=== PATIENT | male | born 1960 | race Two or more races ===

== ENCOUNTER 2022-08-11 12:55 | Inpatient (IN) | payer MEDICAID, OTHER ==
[~2022-08-11] VITALS: Ht 167.6 cm; Wt 107.0 kg
[2022-08-11] VITALS (9 sets, daily range): BP systolic 136–166; BP diastolic 64–92
[2022-08-11] MEDS ORDERED: LOSA100T25 PO (13:15)
[2022-08-11] MEDS ORDERED: AMLO-489 PO (13:15)
[2022-08-11] MEDS ORDERED: POTA10TA51 PO (13:15)
[2022-08-11] MEDS ORDERED: ROSU10TA16 PO (13:15)
[2022-08-11 13:25] LABS: Basophils # (auto) 0 10 ^3/uL (0-0.2); Eosinophils # (auto) 0.3 10 ^3/uL (0-0.8); Lymphocytes # (auto) 4.3 10 ^3/uL (0.4-5.4); Lymphocytes % (auto) 43.8 % (10.0-50.0); Nucleated Red Blood Cells % 0.1 %; Red Cell Distribution Width 17.6 % (11.8-14.3)
[2022-08-11] MEDS ORDERED: DOPamine 1600MCG/ML D5W 250 ML IV ONE (13:30)
[2022-08-11 13:33] LABS: Basophils % (auto) 0.2 % (0.0-2.0); Eosinophils % (auto) 3.4 % (0.0-7.0); Hematocrit 40.2 % (41.0-53.0); Hemoglobin 13.4 g/dL (13.5-17.5); Mean Corpuscular Hemoglobin 24.9 pg (28.0-32.0); Mean Corpuscular Hgb Conc. 33.4 g/dL (32.0-36.0); Mean Corpuscular Volume 74.6 fL (80.0-100.0); Neutrophils # (auto) 4.1 10 ^3/uL (1.6-8.6); Neutrophils % (auto) 42.6 % (37.0-80.0); Red Blood Cells 5.39 10^6/uL (4.5-5.90); White Blood Cell 9.7 10^3/uL (4.4-10.8)
[2022-08-11 13:43] LABS: Albumin 3.7 g/dL (3.4-5.0); Calcium 8.8 mg/dL (8.5-10.1); Magnesium 2.4 mg/dL (1.6-2.6); Potassium 3.4 mmol/L (3.5-5.1)
[2022-08-11] MEDS ORDERED: GLUCAGON HYDROCHLORIDE (RDNA) 1 MG VIAL IV ONE (13:45)
[2022-08-11] MEDS ORDERED: CALCIUM GLUC 1,000mg/50ml-NS 50 ML IV ONE (13:45)
[2022-08-11 13:48] LABS: INR 0.96 (0.9-1.15); Partial Thromboplastin Time 26.5 sec (24.6-33.4)
[2022-08-11 13:49] LABS: BUN/Creatinine Ratio 16.9; Bilirubin, Total 0.4 mg/dL (0.2-1.0); Total Protein 7.2 g/dL (6.4-8.2)
[2022-08-11 14:13] LABS: Cholesterol 137 mg/dL (< 200); HDL Cholesterol 41 mg/dL (40-59); LDL Cholesterol 80 mg/dL (< 100); Triglycerides 179 mg/dL (< 150)
[2022-08-11] MEDS ORDERED: LIDOCAINE 2%HCL (LOCAL ANESTH.) INJ 20ML MDV ONE (15:36)
[2022-08-11] MEDS ORDERED: VANCOMYCIN HCL 1000 MG VL ONE (15:44)
[2022-08-11] MEDS ORDERED: VANCOMYCIN 1GM/250ML 250 ML IV ONE (15:45)
[2022-08-11] MEDS ORDERED: fentaNYL CITRATE 100 MCG/2 ML VL ONE (15:45)
[2022-08-11] MEDS ORDERED: MIDAZOLAM HCL 2MG/2ML 2ml VIAL (1mg/ml) ONE (15:45)
[2022-08-11] MEDS ORDERED: IODIXANOL 320MG/ML 100ML BTL IV ONE (16:00)
[2022-08-11] MEDS ORDERED: ALBUAER3 IN (16:08)
[2022-08-11] MEDS ORDERED: AMLO-496 PO (16:08)
[2022-08-11] MEDS ORDERED: ACETAMINOPHEN 500 MG TAB PO PRN (16:15)
[2022-08-11] MEDS ORDERED: MORPHINE SULFATE INJ 2 MG/ml SYRG IV PRN (16:15)
[2022-08-11] MEDS ORDERED: NITROGLYCERIN 0.4 MG SL TAB SL PRN (16:15)
[2022-08-11] MEDS ORDERED: hydrALAZINE HCL 20 MG/ML VL IV PRN (16:15)
[2022-08-11] MEDS ORDERED: SODIUM CHLORIDE 0.9% 1,000 ML IV SCH (17:15)
[2022-08-11] MEDS ORDERED: POTASSIUM EFFERVESENT TAB 25 MEQ PO ONE (18:00)
[2022-08-11] MEDS: HYDROcodone-ACET 10/325MG TAB PO PRN (20:42)
[2022-08-11] MEDS: ATORVASTATIN 20 MG TAB PO SCH (21:25)
[2022-08-12] VITALS (7 sets, daily range): BP systolic 123–154; BP diastolic 63–82
[2022-08-12 05:55] LABS: Potassium 3.2 mmol/L (3.5-5.1)
[2022-08-12 05:59] LABS: BUN/Creatinine Ratio 17.3; Calcium 8.3 mg/dL (8.5-10.1)
[2022-08-12] MEDS: HYDROcodone-ACET 10/325MG TAB PO PRN ×2 (06:39→14:07)
[2022-08-12] MEDS: amLODIPine BESYLATE 5 MG TAB PO SCH (08:23)
[2022-08-12] MEDS: LOSARTAN POTASSIUM 50 MG TAB PO SCH (08:24)
[2022-08-12] MEDS: HCTZ 25 MG TAB PO SCH (08:25)
[2022-08-12] MEDS: POTASSIUM CHL 20 Meq TABLET PO SCH ×2 (18:41→21:53)
[2022-08-12] MEDS: ATORVASTATIN 20 MG TAB PO SCH (21:53)
[2022-08-13] VITALS (7 sets, daily range): BP systolic 128–159; BP diastolic 74–86
[2022-08-13] MEDS: POTASSIUM CHL 20 Meq TABLET PO SCH (01:10)
[2022-08-13 06:34] LABS: Calcium 8.4 mg/dL (8.5-10.1); Potassium 3.9 mmol/L (3.5-5.1)
[2022-08-13] MEDS: amLODIPine BESYLATE 5 MG TAB PO SCH (09:24)
[2022-08-13] MEDS: LOSARTAN POTASSIUM 50 MG TAB PO SCH (09:25)
[2022-08-13] MEDS: HCTZ 25 MG TAB PO SCH (09:26)
[2022-08-13] MEDS: ACETAMINOPHEN 325 MG TAB PO PRN (14:02)
[2022-08-13] MEDS: ATORVASTATIN 20 MG TAB PO SCH (21:48)
[2022-08-14] VITALS (10 sets, daily range): BP systolic 112–162; BP diastolic 67–93
[2022-08-14] MEDS ORDERED: VANCOMYCIN 1GM/250ML 250 ML IV ONE (08:52)
[2022-08-14] MEDS ORDERED: VANCOMYCIN HCL 1000 MG VL ONE (08:52)
[2022-08-14] MEDS ORDERED: MIDAZOLAM HCL 2MG/2ML 2ml VIAL (1mg/ml) ONE ×2 (08:52→09:22)
[2022-08-14] MEDS ORDERED: fentaNYL CITRATE 100 MCG/2 ML VL ONE ×2 (08:52→09:22)
[2022-08-14] MEDS ORDERED: LIDOCAINE 2%HCL (LOCAL ANESTH.) INJ 10ml MDV ONE (09:03)
[2022-08-14] MEDS: HCTZ 25 MG TAB PO SCH (12:07)
[2022-08-14] MEDS: amLODIPine BESYLATE 5 MG TAB PO SCH (12:08)
[2022-08-14] MEDS: LOSARTAN POTASSIUM 50 MG TAB PO SCH (12:08)
[2022-08-14] MEDS: ACETAMINOPHEN 325 MG TAB PO PRN ×2 (12:10→21:14)
[2022-08-14] MEDS: HYDROcodone-ACET 10/325MG TAB PO PRN (16:01)
[2022-08-14] MEDS: ATORVASTATIN 20 MG TAB PO SCH (21:13)
[2022-08-15] MEDS: HYDROcodone-ACET 10/325MG TAB PO PRN (03:05)
[2022-08-15 05:00] VITALS: BP 134/69
[2022-08-15 07:30] VITALS: BP 155/76
[2022-08-15 09:00] VITALS: BP 105/76
[2022-08-15] MEDS: LOSARTAN POTASSIUM 50 MG TAB PO SCH (11:40)
[2022-08-15] MEDS: HCTZ 25 MG TAB PO SCH (11:40)
[2022-08-15] MEDS: amLODIPine BESYLATE 5 MG TAB PO SCH (11:40)
[2022-08-15 13:00] VITALS: BP 151/53
[2022-08-15 17:00] VITALS: BP 124/61
== END 2022-08-15 16:50 | disposition home health service (06) | DRG 171 ==
LOC: ER 12:55 → EDBD 12:55 → TELE 16:16 → TELE-EAST 18:43
PROVIDERS: ADMIT Nurse Practitioner Acute Care; ATTEND Internal Medicine
PROC: 0JH606Z Insertion of Pacemaker, Dual Chamber into Chest Subcutaneous Tissue and Fascia, Open Approach (ICD-10-PCS; principal; 2022-08-11)
PROC: 02H63JZ Insertion of Pacemaker Lead into Right Atrium, Percutaneous Approach (ICD-10-PCS; 2022-08-11)
PROC: 02HK3JZ Insertion of Pacemaker Lead into Right Ventricle, Percutaneous Approach (ICD-10-PCS; 2022-08-11)
PROC: 02WA3MZ Revision of Cardiac Lead in Heart, Percutaneous Approach (ICD-10-PCS; 2022-08-14)
DX: I44.2 Atrioventricular block, complete (principal); E66.9 Obesity, unspecified; E78.5 Hyperlipidemia, unspecified; I10 Essential (primary) hypertension; R73.03 Prediabetes; Z20.822 Contact with and (suspected) exposure to COVID-19; Z88.8 Allergy status to other drugs, medicaments and biological substances; Z68.37 Body mass index [BMI] 37.0-37.9, adult
CPT/HCPCS: 33208; 33215; 36415; 71045; 80048; 80053; 80061; 83036; 83605; 83735; 83880; 84443; 84484; 85025; 85379; 85610; 85730; 87040; 87426; 87804; 93005; 93306; 96365; 96375; 99152; 99153; C1785; G0378; J2001; J2250; Q9967

== ENCOUNTER 2022-08-21 20:22 | Emergency (ER) | payer MEDICAID ==
[~2022-08-21] VITALS: Ht 177.8 cm; Wt 130.0 kg
[~2022-08-21 20:22] MED LIST: ALBUAER3 IN; AMLO-496 PO; LOSA100T25 PO; POTA10TA51 PO; ROSU10TA16 PO
[2022-08-21 22:23] LABS: Basophils # (auto) 0 10 ^3/uL (0-0.2); Basophils % (auto) 0.4 % (0.0-2.0); Eosinophils # (auto) 0.4 10 ^3/uL (0-0.8); Eosinophils % (auto) 4.5 % (0.0-7.0); Hematocrit 36.7 % (41.0-53.0); Hemoglobin 12.4 g/dL (13.5-17.5); Lymphocytes # (auto) 2.4 10 ^3/uL (0.4-5.4); Lymphocytes % (auto) 31.4 % (10.0-50.0); Mean Corpuscular Hemoglobin 25.1 pg (28.0-32.0); Mean Corpuscular Hgb Conc. 33.8 g/dL (32.0-36.0); Mean Corpuscular Volume 74.4 fL (80.0-100.0); Monocytes # (auto) 0.6 10 ^3/uL (0-1.3); Monocytes % (auto) 8.1 % (0.0-12.0); Neutrophils # (auto) 4.3 10 ^3/uL (1.6-8.6); Neutrophils % (auto) 55.6 % (37.0-80.0); Nucleated Red Blood Cells % 0.1 %; Red Blood Cells 4.93 10^6/uL (4.5-5.90); Red Cell Distribution Width 17.1 % (11.8-14.3); White Blood Cell 7.8 10^3/uL (4.4-10.8)
[2022-08-21 22:24] LABS: Albumin 3.8 g/dL (3.4-5.0); Calcium 8.7 mg/dL (8.5-10.1); Potassium 3.4 mmol/L (3.5-5.1)
[2022-08-21 22:34] LABS: INR 0.94 (0.9-1.15); Partial Thromboplastin Time 27.5 sec (24.6-33.4)
[2022-08-21 22:35] LABS: BUN/Creatinine Ratio 20.3; Bilirubin, Total 0.2 mg/dL (0.2-1.0); Total Protein 7.2 g/dL (6.4-8.2)
[2022-08-21] MEDS ORDERED: ACETAMINOPHEN 325 MG TAB PO ONE (23:00)
[2022-08-22 05:03] VITALS: BP 130/74
== END 2022-08-22 05:25 | disposition home or self-care (01) ==
LOC: ER 20:22 → EDBD 20:22 → ER 08-22 05:25
DX: R06.02 Shortness of breath (principal); D64.9 Anemia, unspecified; R73.9 Hyperglycemia, unspecified; I10 Essential (primary) hypertension; E78.5 Hyperlipidemia, unspecified; Z95.0 Presence of cardiac pacemaker
CPT/HCPCS: 36415; 71045; 80053; 83880; 84484; 85025; 85610; 85730; 93005